=== PATIENT | male | born 1980 | race Caucasian/White ===

== ENCOUNTER 2018-06-02 18:10 | Emergency (ER) | payer MEDICAID ==
[2018-06-02] MEDS: ONDANSETRON (ODT) 4 MG TAB ODT (19:28)
== END 2018-06-02 20:08 | disposition home or self-care (01) ==
LOC: FTE 18:10
DX: R11.2 Nausea with vomiting, unspecified (principal); R19.7 Diarrhea, unspecified
CPT/HCPCS: 99283; Z7502